=== PATIENT | female | born 1990 | race Caucasian/White ===

== ENCOUNTER 2025-01-16 04:03 | Emergency (ER) | payer MEDICAID ==
[~2025-01-16] VITALS: Ht 170.2 cm; Wt 73.0 kg
[~2025-01-16 04:03] MED LIST: CARI250T; CEPH250C PO; ESCI10TA; HYDR-4833
[2025-01-16 04:22] VITALS: BP 138/87; PULSE 106; RESP 17; TEMP 98.2; O2SAT 97
--- NOTE | 2025-01-16 04:36 | ED.PDOC ---
GI ASSESSMENT HPI Comments 34 year old female with a Hx of Sepsis presents to the ED via EMS for the c/c of Non radiating RLQ ABD pain w/ associated N/V, Fever, Chills, Cough, Sweats, and Bloody Stools. Pt states that her symptoms have been onset for the past 3x days with no alleviating factors at this time. Pt notes that she was living in her car, when it was towed by the police department, due to the car not having plates, or proper registration.No other associated symptoms, modifiers, recent injuries or sick contacts present at this time. Physical Exam General: Awake, alert and oriented. Severe distress. Skin: Skin in warm, dry and intact. Appropriate color for ethnicity. HEENT: The head is normocephalic and atraumatic. Conjunctivae are clear without exudates or hemorrhage. Sclera is non-icteric. EOM are intact. No signs of nystagmus. Eyelids are normal in appearance without swelling or lesions. Oral mucosa is pink and moist Neck: The neck is supple with normal range of motion. No JVD. Cardiac: Heart rate and rhythm are normal. No murmurs, gallops, or rubs are aus cultated. Respiratory: No signs of respiratory distress. Lung sounds are clear in all lobes bilaterally without rales, rhonchi, or wheezes. Abdominal: Abdomen is soft, With Tenderness upon palpitation to the RLQ. Bowel sounds are present and normoactive in all four quadrants. Extremities: Upper and lower extremities are atraumatic in appearance without deformity or edema. Neurological: The patient is awake, alert and oriented to person, place, and time with normal speech. Speech is clear. There is no facial asymmetry. Psychiatric: Appropriate mood and affect. Good judgement and insight. REVIEW OF SYSTEMS: General: + fever,+ chills, or fatigue HEENT: No sore throat, no earache, no congestion, no neck pain. Cardiac: No chest pain. No palpitations. Lungs: No shortness of breath, + cough. GI: + nausea, + vomiting, no diarrhea, no constipation, + abdominal pain : No dysuria, frequency, or urgency. No hematuria. Musculoskeletal: No joint pain , no joint swelling, no extremity edema. Skin: No rash, no itching. Neuro: No headache, no dizziness, no weakness Chief Complaint: Abdominal Pain Time Seen by MD: 04:30 Reviewed Notes: Nurses Notes, Ice Cream Man Notes, Medications, Allergies Allergies: Coded Allergies: Haloperidol (Verified Allergy, 10/17/09) Home Meds Active Scripts Cephalexin (KEFLEX CAPSULE) 250 Mg Cp, 1 CAP PO QID, #28 CAP Prov:FILI MCGARRY MD 12/12/23 Reported Medications Carisoprodol (Soma) 250 Mg Tab, D 10/17/09 [[place]] ([place] 5-325 mg) No Conflict Check 10/17/09 Escitalopram Oxalate (Lexapro) 10 Mg Tab, DAILY 10/17/09 Information Source: Patient, Emergency Med Personnel Mode of Arrival: EMS Timing: Days Duration: Intermittent, Days Prehospital treatment: None Quality: Aching Vomitus: Watery Stool: Normal Severity: Moderate Recent: None Recent Hx of: None Pain Location: RLQ Modifying Factors: Exertion, Movement Associated sign and symptoms: Nausea, Vomiting, Abdominal Pain Past Medical History PAST MEDICAL HISTORY: Denies Surgical History: Cholecystectomy, , Tonsillectomy [employer] History: No Pertinent [employer] History Family History Family History: Unknown Social History Smoker: Non-Smoker Alcohol: Denies ETOH Use Drugs: Denies Drug Use Lives In: Homeless Was a procedure done? Was a procedure done?: No GI differential Dx Differential Diagnosis: Appendicitis, Cholangitis, Cholecystitis, Constipation, Ectopic , Gastritis/PUD, Gastroenteritis, Ovarian cyst/torsion, Pancreatitis, UTI, Urolithiasis, Dehydration, Drug toxicity, Electrolyte Imbalance, Food Poisoning, Kidney Stone X-Ray, Labs, Meds, VS Vital Signs Date Time Temp Pulse Resp B/P (MAP) Pulse Ox O2 Delivery O2 Flow Rate FiO2 01/16/25 04:22 98.2 106 17 138/87 97 98.2 Time of 1ST Reevaluation: 05:00 Reevaluation 1ST: Unchanged Patient Education/Counseling: Diagnosis, Treatment, Need For Follow Up Family Education/Counseling: No Family Present SEPSIS Sepsis Screen Physician Orders Urinalysis (01/16/25 05:06) Vital Signs Date Time Temp Pulse Resp B/P (MAP) Pulse Ox O2 Delivery O2 Flow Rate FiO2 01/16/25 04:22 98.2 106 17 138/87 97 98.2 Departure 1 Departure Time of Disposition: 06:00 Impression: Primary Impression: Abdominal pain Additional Impression: Cough Disposition: 30 STILL A PATIENT Condition: Other Comments 34-year-old female with cough, abdominal pain. Signed out to Dr. Guzman pending lab and imaging results. Critical Care Note Critical Care Time?: No Stability Stability form required: No Heart Score Heart Score: Heart Score Response (Comments) Value History N/A 0 EKG N/A 0 Age N/A 0 Risk Factors N/A 0 Troponin N/A 0 Total 0 I personally scribed for MALIA MCCLAIN MD ([email or web address]) on 01/16/25 at 04:36. Electronically submitted by Ronal Storey ([email or web address]). MALIA MCCLAIN MD Jan 16, 2025 04:36
== END 2025-01-16 10:11 | disposition left against medical advice (07) ==
LOC: EDBD 04:03 → ER 04:03
DX: R10.31 Right lower quadrant pain (principal); R05.9 Cough, unspecified; K92.1 Melena; R50.9 Fever, unspecified; Z79.899 Other long term (current) drug therapy; Z90.49 Acquired absence of other specified parts of digestive tract; Z90.89 Acquired absence of other organs; Z98.890 Other specified postprocedural states; Z88.8 Allergy status to other drugs, medicaments and biological substances